=== PATIENT | male | born 1985 | race Caucasian/White ===

== ENCOUNTER → 2020-08-04 13:48 | Outpatient (CLI) | payer OTHER, SELFPAY ==
--- NOTE | 2020-08-04 13:50 | ECHOD_ITS ---
Reason For Study: Palpitations Procedure This was a 2D Doppler, Color Flow transthoracic echocardiogram. The exam was of adequate technical quality. Exam performed in department. Left Ventricle Normal LV size. Left ventricular systolic function is normal. The estimated ejection fraction is 60 %. No evidence for diastolic dysfunction. No regional wall motion abnormalities noted. Right Ventricle Normal RV size. Normal systolic function. Atria Normal left atrium. Normal right atrium. No doppler evidence for ASD. Mitral Valve There is no mitral annular calcification. Normal mitral valve. Trivial mitral valve insufficiency. Tricuspid Valve Normal tricuspid valve. Trivial tricuspid valve insufficiency. Aortic Valve Trisinus/trileaflet aortic valve. Normal aortic valve. Pulmonic Valve The pulmonic valve is not well visualized. Great Vessels Normal sized aortic root. Pericardium/Pleural No pericardial effusion. MMode/2D Measurements & Calculations LVIDd: 4.7 cm IVSd: 1.4 cm Ao root diam: 3.5 cm LVIDs: 3.0 cm LVPWd: 1.2 cm LA dimension: 3.6 cm FS: 37.0 % LAV(MOD-bp): 41.5 ml LA A4 area: 17.1 cm2 RA A4 area: 16.4 cm2 LAV(MOD-bp) Indexed: 19.1 ml/m2 LAV(MOD-sp2): 35.2 ml LAV(MOD-sp4): 45.3 ml Time Measurements MV dec time: 0.17 sec Doppler Measurements & Calculations MV E max cecil: 92.9 cm/sec Lat Peak E' Cecil: 14.6 cm/sec Med Peak E' Cecil: 11.4 cm/sec MV A max cecil: 62.8 cm/sec E/E' lat: 6.3 E/E' med: 8.1 MV E/A: 1.5 MV V2 max: 93.3 cm/sec MV P1/2t max cecil: 92.7 cm/sec Ao V2 max: 102.9 cm/sec MV max P.5 mmHg MV P1/2t: 70.4 msec Ao max P.2 mmHg MV V2 mean: 48.8 cm/sec MV dec slope: 386.0 cm/sec2 MV mean P.1 mmHg MVA(P1/2t): 3.1 cm2 MV V2 VTI: 25.9 cm LV V1 max: 106.8 cm/sec PA V2 max: 104.0 cm/sec LV V1 max P.6 mmHg Interpretation Summary Left ventricular systolic function is normal. The estimated ejection fraction is 60 %. Trivial mitral valve insufficiency. Trivial tricuspid valve insufficiency. No evidence for diastolic dysfunction. Ordering Physician: Martin Mullins Referring Physician: Martin Mullins Performed By: Curtis Carcamo RCS
== END ==
PROVIDERS: PCP Family Medicine; Referring Provider Family Medicine; Visit Provider Family Medicine
DX: R00.2 Palpitations (principal)
CPT/HCPCS: 93306

== ENCOUNTER 2023-01-09 22:44 | Emergency (ER) | payer BC, SELFPAY ==
[2023-01-09 22:45] VITALS: BP 169/100; PULSE 79; RESP 18; TEMP 36.3; O2SAT 100; BMI 32.1
--- NOTE | 2023-01-09 23:06 | EX.ED.DYSGE1 ---
HPI History of Present Illness Chief Complaint: Back Informant: patient Narrative Narrative: Patient presents with right facial symptoms with recent back neck pain. Patient states last week he had pain in his upper back between his shoulder blades. He thought he just worked wrong. He took Tylenol and still went to work. He noted this morning that his back pain was gone but he had pain in his neck that wrapped up to the area behind his ears. During the day that seemed to improve. Patient states some of his coworkers were commenting that his eyes were not blinking normally today. He states the right side his face feels unusual. He reports slight tension around his eyes. He states he noticed he had difficulty focusing on the computer when he was trying to read. PFSH PFS Medical History no medical history no medical history Home Medications acyclovir 400 mg tablet 1 tab PO 5X/DAY #35 tabs 01/09/23 [Rx Last Taken Unknown] prednisone 10 mg tablet 10 mg PO DAILY #48 TABLETS 01/09/23 [Rx Last Taken Unknown] Allergy/AdvReac Type Severity Reaction Status Date / Time No Known Allergies Allergy Verified 01/09/23 22:48 Surgical History no surgical history Social History Smoking Status: Never smoker ROS ROS ED Constitutional Constitutional ED: Denies chills or fever(s) Eyes Eyes: Reports blurry vision; Denies discharge from eye(s) ENT ENT ED: Denies discharge from eye(s), rhinorrhea or sore throat Cardiovascular Cardiovascular: Denies chest pain or palpitations Respiratory/Chest Respiratory/Chest: Denies cough or dyspnea Gastrointestinal Gastrointestinal: Denies abdominal pain, nausea or vomiting Genitourinary Genitourinary ED: Denies dysuria Musculoskeletal Musculoskeletal: Reports back pain; Denies extremity pain Integumentary Denies Abrasions or rash Neurologic Neurologic: Reports weakness; Denies headache(s) Psychiatric Psychiatric: Denies anxiety or depression Allergic/Immunologic Allergic/Immunologic ED: Denies lip swelling or urticaria EXAM Physical Exam Const Vital Signs: 01/09/23 22:45 Temperature 97.3 F L Temperature Source Temporal Pulse Rate 79 Respiratory Rate 18 Blood Pressure 169/100 H Blood Pressure Mean 123 Pulse Ox 100 Oxygen Delivery Method Room Air Positive well nourished and well developed General Appearance ED: well developed HEENT Reports moist mucous membranes HEENT Narrative: Patient has decreased wrinkles of his right forehead on exam Eyes Eyes Narrative: During interview and exam it is noted patient's right eye is not blinking as frequently or closing tightly. No periorbital edema. Neck no lymphadenopathy Chest Wall inspection of chest normal and palpation of chest normal Resp normal respiratory effort and clear to auscultation bilaterally Cardio regular rate and regular rhythm GI normal to inspection, nondistended, normoactive bowel sounds Back/Spine Back/Spine Narrative: Mild tenderness in the upper thoracic/lower cervical spine, worse in the paraspinal muscles as opposed to midline. No overlying skin change. Extremity normal to inspection Neuro oriented x3 Neuro Narrative: Slight decrease strength noted on the right face with loss of wrinkles on the forehead and weakness in closing his right eye. 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 He does have upper face involvement. He will be treated with prednisone and acyclovir. Return instructions were provided. Discharge Plan Triage Chief Complaint: Back ED Provider: Briana Sinclair Dx/Rx/DC Orders Clinical Impression: Navarro's palsy Instructions: ED Navarro's Palsy Prescriptions: New prednisone 10 mg tablet 10 mg PO DAILY Qty: 48 0RF Rx Instructions: 6 po qd x 3 days, 4 po qd x 3 days, 2 po qd x 3 days, 1 po qd x 3 days acyclovir 400 mg tablet 1 tab PO 5X/DAY Qty: 35 0RF Primary Care Provider: Martin Mullins Referrals: Martin Mullins MD [Primary Care Provider] - 1-2 Weeks Disposition Disposition: Home, Self Care
[2023-01-09] MEDS: predniSONE 20 MG Tablet 60 MG PO (23:30)
[2023-01-09] MEDS: Acyclovir 200 MG Capsule 400 MG PO (23:32)
[2023-01-09 23:34] VITALS: BP 125/97; PULSE 76; RESP 18; O2SAT 97
== END 2023-01-09 23:36 | disposition home or self-care (01) ==
PROVIDERS: Emergency Provider Emergency Medicine; PCP Family Medicine; Visit Provider Emergency Medicine
DX: G51.0 Bell's palsy (principal); M54.9 Dorsalgia, unspecified; M54.2 Cervicalgia
CPT/HCPCS: 99283

== ENCOUNTER 2024-03-25 22:52 | Emergency (ER) | payer OTHER, SELFPAY ==
[2024-03-25 22:53] VITALS: BP 154/96; PULSE 79; RESP 16; TEMP 36.6; O2SAT 100; BMI 29.8
--- NOTE | 2024-03-25 23:13 | EDS_ITS ---
HPI History of Present Illness HPI Narrative: Discomfort to the soft tissue of his left upper back between his left shoulder blade and spine. Thinks he twisted and injured it. Denies any fall injury or trauma. This been going on since last . Feels like he did have as much strength in his left hand. Denies any pain radiating down his left shoulder or into his hand. No prior history. No prior neck, back or arm surgery. Chief Complaint: Upper Extremity Injury Informant: patient Occured/Mechanism Mechanism/Context: Yes injury Onset/Context/Timing Onset: Days Context: Gradual Onset Timing: Continuous Quality of Pain: Dull Current Severity: Mild Maximum Severity: Mild Associated Symptoms Associated Symptoms: Negative for Parasthesia, Weakness or Loss of Funtion Narrative Narrative: 38-year-old male discomfort of left upper neck and back thinks he pulled a muscle. Prior similar symptoms: No Recent Illness/Hospitalization: No PFSH PFSH Home Medications ?Medication ?Instructions ?Recorded ?Last Taken ?Type metaxalone 800 mg tablet 800 mg PO TID 7 days #21 tabs 03/25/24 Unknown Rx Allergy/AdvReac Type Severity Reaction Status Date / Time No Known Allergies Allergy Verified 03/25/24 22:57 Social History Smoking Status: Never smoker ROS ROS ED ROS Narrative Denies recent illness. Constitutional Constitutional ED: Denies chills or fever(s) Eyes Eyes: Denies blurry vision ENT ENT ED: Denies ear pain Cardiovascular Cardiovascular: Denies chest pain Respiratory/Chest Respiratory/Chest: Denies cough or dyspnea Gastrointestinal Gastrointestinal: Denies abdominal pain Genitourinary Genitourinary ED: Denies dysuria Musculoskeletal Musculoskeletal: Reports other Details: Left upper back soft tissue discomfort. ; Denies back pain or myalgias Integumentary Denies abscess Neurologic Neurologic: Denies headache(s) Psychiatric Psychiatric: Denies anxiety or depression Endocrine Endocrinology: Denies cold intolerance Hematologic/Lymphatic Hematologic/Lymphatic: Denies easy bleeding Allergic/Immunologic Allergic/Immunologic ED: Denies mouth swelling EXAM Physical Exam Narrative Exam Narrative: 38-year-old male no acute distress vital signs stable afebrile. H EENT exam unremarkable. Neck nontender no lymphadenopathy. No spine tenderness. Back is tenderness to soft tissue between his left scapula and spine. Consistent with myofascial strain and spasm. No redness or warmth no discoloration or bruising. Otherwise his backs nontender. Lungs clear. Heart regular rate and rhythm no murmur. Abdomen soft nontender. Moving all 4 extremities. 5 out of 5 design painter strength. Normal sensation. Normal range of motion. He has discomfort when he looks down and when he turns his head to the left. Same muscle on his back. Neurologically is awake and alert no focal motor or sensory deficits. Exam is consistent with myofascial strain and spasm. Const Vital Signs: 03/25/24 22:53 Temperature 97.8 F Temperature Source Oral Pulse Rate 79 Respiratory Rate 16 Blood Pressure 154/96 H Blood Pressure Mean 115 Pulse Ox 100 Oxygen Delivery Method Room Air Positive well nourished and well developed; Negative for obese, cachectic, contractures or unkempt General Appearance ED: well developed and NAD; Negative for unkempt, cachectic, contractures, cyanotic or diaphoretic Nutritional Appearance: Negative for cachectic or obese HEENT Reports moist mucous membranes normocephalic and atraumatic Eyes PERRL Neck full ROM and supple Chest Wall inspection of chest normal and palpation of chest normal Resp normal respiratory effort and clear to auscultation bilaterally Cardio regular rate, regular rhythm, S1 normal heart sound, S2 normal heart sound and no murmurs Rate: Negative for bradycardia or tachycardic GI non-tender, non-distended and no masses Palpation: soft; Negative for tender, guarding or rebound tenderness present Back/Spine no CVA tenderness Back/Spine Narrative: Soft tissue tenderness between his left scapula and spine. Extremity normal to inspection and full ROM General Extremety ED: Negative for edema General Extremity: Negative for edema Neuro oriented x3, CN's II-XII intact bilaterally, moves all extremities, no focal motor deficits and no sensory deficits noted Sensorium / Orientation: alert, oriented to person, oriented to place and oriented to time Motor Exam: strength 5/5 throughout Psych mental status grossly normal Appearance: Negative for unkempt Attitude: No agitated Mood & Affect: Negative for depressed Skin General Skin Exam: Negative for petechiae Lesions: no lesions Rashes: no rashes Trauma: no lacerations or abrasions MDM MDM MDM Narrative Medical decision making narrative: 38-year-old male with left upper back discomfort consistent myofascial strain and spasm. This does not appear to be a disc or radiculopathy. He will be treated with ibuprofen and the muscle relaxant Skelaxin. Hypes is shower, massage and follow-up if not improving. He does not need any imaging or labs. Discharge Plan Triage Chief Complaint: Upper Extremity Injury ED Provider: Raymundo Aldana Dx/Rx/DC Orders Clinical Impression: Muscle spasm Instructions: ED Muscle Spasm Prescriptions: New metaxalone 800 mg tablet 800 mg PO TID 7 Days Qty: 21 0RF Primary Care Provider: NOT,DEFINED Referrals: Cruz Stearns MD [Med Staff - Project Economist] - 10-14 Days if not better NOT,DEFINED [Primary Care Provider] - Activity Restrictions/Additional Instructions: Your arm muscle spasm of your left upper back and neck. Hot shower. Warm bath. Hot tub. Massage. Motrin 3-4 times a day. Tylenol in between. Muscle relaxant Skelaxin 3 times a day. This should progressively improve over the next 3 to 7 days. If not follow-up for further evaluation. Print Language: Omani Disposition Disposition: Home, Self Care
[2024-03-25] MEDS: Metaxalone 800 MG Tablet PO (23:19)
== END 2024-03-25 23:20 | disposition home or self-care (01) ==
LOC: ED 23:18
PROVIDERS: Emergency Provider Emergency Medicine; Visit Provider Emergency Medicine
DX: M62.838 Other muscle spasm (principal); M54.2 Cervicalgia
CPT/HCPCS: 99282